=== PATIENT | female | born 1980 | race Caucasian/White ===

== ENCOUNTER 2018-09-04 18:19 | Outpatient (REF) | payer OTHER, SELFPAY ==
[2018-09-04 19:05] LABS: ALT 26 U/L (12-78); AST 19 U/L (15-37); Alkaline Phosphatase 77 U/L (46-116); Bilirubin, Direct 0.07 mg/dL (0.00-0.20); Bilirubin, Total 0.3 mg/dL (0.2-1.0); CREATININE 0.81 mg/dL (0.55-1.02); Uric Acid 3.3 mg/dL (2.6-6.0)
== END 2018-09-04 18:39 ==
LOC: NCHCN 18:19
PROVIDERS: PCP Nurse Practitioner; Visit Provider Nurse Practitioner Family
DX: R11.0 Nausea (principal); B36.0 Pityriasis versicolor; M10.9 Gout, unspecified
CPT/HCPCS: 80076; 82565; 84550

== ENCOUNTER 2019-04-16 13:23 | Outpatient (REF) | payer OTHER, SELFPAY ==
[2019-04-16 18:59] LABS: HCT 43.7 % (36.0-46.0); HGB 14.1 g/dL (12.0-15.5); Mean Corp. HGB Concentration 32.3 g/dL (32.0-36.0); Mean Corpuscular Hemoglobin 30.8 pg (27.0-33.0); Mean Corpuscular Volume 95.4 fL (80-95); Mean Platelet Volume 10.7 fL (8.0-11.0); Platelet Count 258 x1000/uL (130-400); RBC 4.58 m/cumm (4.00-5.20); White Blood Cell Count 6.14 k/cumm (4.4-10.8)
[2019-04-16 19:15] LABS: TSH (W/Ref FT4) 3.12 uIU/mL (0.358-3.74)
== END 2019-04-16 13:43 ==
LOC: NCHCN 13:23
PROVIDERS: PCP Nurse Practitioner; Visit Provider Family Medicine
DX: R11.2 Nausea with vomiting, unspecified (principal); R10.13 Epigastric pain
CPT/HCPCS: 85027; 84443

== ENCOUNTER 2019-04-19 09:39 | Outpatient (REF) | payer OTHER, SELFPAY ==
[2019-04-20 14:38] LABS: Helicobacter pylori Ag, Feces Negative (NEGAT)
== END 2019-04-19 09:59 ==
LOC: NCHCN 09:39
PROVIDERS: PCP Nurse Practitioner; Visit Provider Family Medicine
DX: K29.00 Acute gastritis without bleeding (principal)
CPT/HCPCS: 87338

== ENCOUNTER 2019-06-11 16:33 | Outpatient (REF) | payer OTHER, SELFPAY ==
[2019-06-11 19:50] LABS: ALT 30 U/L (12-78); AST 15 U/L (15-37); Albumin 3.8 g/dL (3.4-5.0); Alkaline Phosphatase 66 U/L (46-116); Bilirubin, Direct 0.05 mg/dL (0.00-0.20); Bilirubin, Total 0.2 mg/dL (0.2-1.0); Total Protein 6.9 g/dL (6.4-8.2)
[2019-06-14 12:42] LABS: IgA 145 mg/dL (85-499); Interpretation SEE COMMENTS; Tissue Transglutaminase IgA <1.2 U/mL (<4.0)
== END 2019-06-11 16:53 ==
LOC: NCHCN 16:33
PROVIDERS: PCP Nurse Practitioner; Visit Provider Family Medicine
DX: R10.13 Epigastric pain (principal); R11.2 Nausea with vomiting, unspecified
CPT/HCPCS: 80076; 82784; 83516

== ENCOUNTER 2019-07-19 10:59 | Day surgery (SDC) | payer OTHER, SELFPAY ==
--- NOTE | 2019-07-19 07:01 | W.PM.ENDDOP ---
Date of service: 07/19/19 Time of Service: 13:04 Endoscopy Report DATE OF PROCEDURE: 07/19/19 PRE-OP DIAGNOSIS: Abdominal pain POST-OP DIAGNOSIS: other (mild gastritis and mild esophagitis) PROCEDURE: 1. EGD with bx SURGEON: Chaya Fontenot ANESTHESIA: other (General/ ASA 2/Luis Ko CRNA) ESTIMATED BLOOD LOSS: 3 PATHOLOGY: other (Duodenal bx, gastric bx, GE junction bx) COMPLICATIONS: None DISPOSITION: same day INDICATIONS: Mrs. Cuadra is a pleasant 39-year-old female who was seen in the office for some abdominal pain. They have tried multiple different PPIs without any improvement in her symptoms. She also has high anxiety. Other symptoms include dizziness. EGD was recommended. Risks, benefits and complications have been reviewed. Complications include but are not limited to bleeding, pain, perforation, sore throat, aspiration, and adverse reaction to the medications. Questions were entertained and answered to their satisfaction and they wished to proceed. No guarantees were given or implied. PROCEDURE START TIME: 13:04 PROCEDURE END TIME: 13:15 FINDINGS: Normal Duodenum- bx done to rule out Celiac Mild gastritis Mild esophagitis Benign gastric polyps PROCEDURE DESCRIPTION: After informed consent was obtained the patient was take to the procedure room and placed in a supine position. Monitors were applied and a time out was done. The patients name, date of , procedure type, allergies to medications and metal in their body was reviewed. A bite block was placed and the patient was sedated. Once sedated and comfortable the gastroscope was advanced through the oropharynx which was grossly normal into the esophagus. The proximal and mid-esophagus were normal. In the distal esophagus there was mild inflammation noted. The scope was advanced into the stomach and through the pylorus into the 3rd portion of the duodenum. The duodenum was noted to be normal. Biopsies were done of the duodenum to rule out Celiac. The scope was retracted back into the stomach and biopsies were done to rule out H. pylori. There were no ulcers. The scope was retro-flexed. The cardia and fundus were noted to be normal. There no hiatal hernia noted. There a couple of benign fundic polyps noted in the body of the stomach. One polyp removed for pathology. The scope was retracted back into the esophagus and biopsies were done of the GE junction to rule out Figueroa's. The Z line was regular. The GE junction was at 40 cm. The scope was removed and the patient was woken up and taken back to [facility] in stable condition. Follow up: 2-3 weeks in the office
--- NOTE | 2019-07-19 07:03 | PDOC.DSDIS_ITS ---
Discharge Plan Disposition Patient Disposition: HOME Condition: Good Discharge Details Reason For Visit: EPIGASTRIC PAIN,DIARRHEA Attending Provider: Chaya Fontenot Primary Care Provider: Makayla Lees Home Meds and New Rx's Prescriptions: Continued acetaminophen [Tylenol 8 Hour] 650 mg tablet extended release 1,300 mg PO DAILY PRNRF: 0 omeprazole 40 mg capsule,delayed release(DR/EC) 40 mg PO BID RF: 0 Alyacen 06/06/ (28) 0.5/0.75/1 mg- 35 mcg tablet 1 tab PO DAILY RF: 0 ondansetron 4 MG tablet,disintegrating 4 mg PO Q6H PRN PRNQty: 6 RF: 0 Discontinued lorazepam [Ativan] 1 mg tablet 1 mg PO ONCE PRN (Reason: anxiety) Qty: 1 RF: 0 No Action lorazepam 1 mg Tablet 1 mg PO ONCE RF: 0 Discharge Instructions Instructions: Upper Endoscopy (GEN) Additional Instructions: Findings: Mild inflammation of the stomach Multiple biopsies were done Follow up: 2-3 weeks Continue with current medications until I see you in the office Please call if you develop: fevers >101.5 Nausea or Vomiting Abdominal pain that is not transient DAY SURGERY UNIT POST COLONOSCOPY INSTRUCTIONS 1. Because there will be medication in your system for the next 24 hours, you may feel a little sleepy. Your coordination will be affected. Therefore: a. Do not drive or operate dangerous equipment for 24 hours. b. Do not drink alcohol beverages for 24 hours (not even beer). c. Plan to go home and rest for the day. 2. Generally there are no restrictions on your activity after a day or so has gone by, but you may feel a bit fatigued for a few days. 3 After you arrive home you may have a light meal and return to a normal diet as you can tolerate it without feeling sick to your stomach. 4. After surgery, you may feel pain or discomfort. This should be only transient, but if it persists please contact your doctor. 5. If there are any questions regarding the findings of your procedure, please feel free to contact your doctor. 6. If you are unable to contact your doctor with a problem, contact the hospital at [phone]. 7. Continue all your regular medications unless directed otherwise. I understand the above instructions and have no questions. Signature of Patient or Responsible Adult Escort Date/Time Name of Responsible Adult Escort Signature of Nurse Date/Time Referrals: Chaya Fontenot MD [ [facility] STAFF PHYSICIAN] - 08/06/19 8:00 am Activity:: Activity as Tolerated Diet:: As Tolerated Discharge Orders Discharge Orders: Discharge Order (Routine); Ordered 07/19/19 Ordered By: Chaya Fontenot DS: Diagnosis Discharge Diagnosis (1) Epigastric pain: Status: Acute (2) H/O esophagogastroduodenoscopy: Status: Chronic
[2019-07-19 11:28] VITALS: BP 138/77; PULSE 74; RESP 16; TEMP 36.6; O2SAT 100
[2019-07-19] MEDS: Lactated Ringers 1,000 ML 80 ML IV (11:32)
--- NOTE | 2019-07-19 13:09 | BOWEL_PTH ---
PATIENT: Elham Cuadra LOC: [facility] U#:[id number] AGE/SX: 39/F ROOM: RE07/19/[address]: Chaya Fontenot MD : 1980 BED: DIS: 07/19/2019 SPEC #: [id number] RECD: 07/19/19 13:57 STATUS: MIGUEL A REMike #: [id number] MEGAN: 07/19/19 13:[address]: Chaya Fontenot DEPT: Surgical Specimen RECD BY: Ariana De La Rosa ENTERED: 07/19/19 13:58 SP TYPE: Bowel OTHR DR: Makayla Lees Tissues: 1 - BIOPSY BOWEL 2 - STOMACH BIOPSY 3 - STOMACH BIOPSY 4 - STOMACH BIOPSY Procedures: GROSS AND MICRO LEVEL 4 Comments: [id number]
[2019-07-19 13:59] VITALS: BP 117/78; PULSE 76; RESP 16; TEMP 36.6; O2SAT 100
== END 2019-07-19 14:15 | disposition home or self-care (01) ==
PROVIDERS: PCP Family Medicine; Visit Provider Surgery
PROC: 0DJ68ZZ Inspection of Stomach, Via Natural or Artificial Opening Endoscopic (ICD-10-PCS; CPT 43235; principal; 2019-07-19 12:45)
DX: R10.13 Epigastric pain (principal); K31.89 Other diseases of stomach and duodenum; K21.0 Gastro-esophageal reflux disease with esophagitis; K31.7 Polyp of stomach and duodenum; F41.9 Anxiety disorder, unspecified
CPT/HCPCS: 43239; 88305

== ENCOUNTER 2019-10-20 16:16 | Outpatient (REF) | payer OTHER, SELFPAY ==
--- NOTE | 2019-10-20 15:15 | PAPFT_PTH ---
PATIENT: Elham Cuadra LOC: [facility] U#:[id number] AGE/SX: 39/F ROOM: RE10/20/[address]: Makayla Lees : 1980 BED: DIS: 10/20/2019 SPEC #: [id number] RECD: 10/21/19 13:09 STATUS: MIGUEL A REMike #: [id number] MEGAN: 10/20/19 15:[address]: Makayla Lees DEPT: [facility] Cytology RECD BY: Essence Silverman Tissues: 1 - CX/ENDOCX FOR PAP SMEARS Procedures: PAP THIN PREP/UVM Screening HPV DNA PROBE Comments: [id number]
== END 2019-10-20 16:36 ==
LOC: NCHCN 16:16
PROVIDERS: PCP Family Medicine; Visit Provider Family Medicine
DX: Z00.00 Encounter for general adult medical examination without abnormal findings (principal); Z12.4 Encounter for screening for malignant neoplasm of cervix; Z11.51 Encounter for screening for human papillomavirus (HPV)
CPT/HCPCS: 88142; 87624

== ENCOUNTER 2020-07-17 18:47 | Outpatient (REF) | payer OTHER, SELFPAY ==
[2020-07-17 19:17] LABS: Bilirubin Negative (Negative); Blood Negative (Negative); Clarity Clear (Clear); Glucose Negative (Negative); Ketones Negative (Negative); Leukocyte Esterase Negative (Negative); Nitrite Negative (Negative); Specific Gravity 1.015 (1.005-1.025); Urobilinogen 0.2 EU/dL (Up TO 0.2); pH 7.5 (5-8)
[2020-07-17 19:21] LABS: HCG Qual (Urine) Negative
== END 2020-07-17 19:07 ==
LOC: NCHCN 18:47
PROVIDERS: PCP Family Medicine; Visit Provider Family Medicine
DX: R10.30 Lower abdominal pain, unspecified (principal)
CPT/HCPCS: 87491; 87591; 81003; 81025; 87480; 87510; 87660

== ENCOUNTER 2020-07-21 04:25 | Outpatient (CLI) | payer OTHER, SELFPAY ==
--- NOTE | 2020-07-21 | DI.US_ITS ---
EXAM: US PELVIS TRANSVAGINAL CLINICAL HISTORY: LOW ABD PAIN,R10.30 TECHNIQUE: Transabdominal and transvaginal imaging was performed using standard protocol. COMPARISON: US PELVIS TRANSVAG from 02/04/2016 FINDINGS: KIDNEYS: Kidneys are symmetric in size. No evidence of renal calculi. No evidence of hydronephrosis. No renal mass or cyst identified. UTERUS: 8.2 x 4.5 x 5.8 cm. Anteverted. Endometrium: Myometrium: Unremarkable. Cervix: Unremarkable. OVARIES: Right: Cyst or mass: 2.7 centimeter simple cyst versus dominant follicle. Left: Cyst or mass: None. DOPPLER: Color: Symmetric and uniform flow to both ovaries. No hyperemia. Duplex: Normal ovarian arterial waveforms visualized. CUL-DE-SAC: Free fluid: None. IMPRESSION: 1. Normal-appearing uterus with endometrial stripe within normal limits. 2. Unremarkable bilateral ovaries. DATA REPOSITORY:
== END 2020-07-21 04:45 ==
PROVIDERS: PCP Family Medicine; Visit Provider Family Medicine
DX: R10.30 Lower abdominal pain, unspecified (principal)
CPT/HCPCS: 76830; 76856

== ENCOUNTER 2022-09-24 16:54 | Outpatient (REF) | payer OTHER, SELFPAY ==
[2022-09-24 17:02] LABS: Bilirubin Negative (Negative); Blood Negative (Negative); Clarity Clear (Clear); Glucose Negative (Negative); Ketones Negative (Negative); Leukocyte Esterase Negative (Negative); Nitrite Negative (Negative); Specific Gravity 1.015 (1.005-1.025); Urobilinogen 0.2 EU/dL (Up TO 0.2)
== END 2022-09-24 16:55 | disposition home or self-care (01) ==
LOC: NCHCN 16:54
PROVIDERS: PCP Family Medicine; Visit Provider Nurse Practitioner Family
DX: R30.0 Dysuria (principal); R35.0 Frequency of micturition
CPT/HCPCS: 81003

== ENCOUNTER 2022-10-30 15:12 | Outpatient (REF) | payer OTHER, SELFPAY ==
[2022-10-30 16:25] LABS: ALT 25 U/L (14-59); AST 12 U/L (15-37); Albumin 4.4 g/dL (3.4-5.0); Alkaline Phosphatase 80 U/L (46-116); Bilirubin, Total 0.4 mg/dL (0.2-1.0); Calculated LDL 137 mg/dL (<100); Cholesterol 237 mg/dL (<200); HDL Cholesterol 85 mg/dL (40-60); Total Protein 7.6 g/dL (6.4-8.2); Triglyceride 75 mg/dL (<150)
[2022-10-30 16:39] LABS: Bilirubin, Direct 0.1 mg/dL (0.0-0.2)
[2022-10-31 10:39] LABS: HIV-1/2 Ag & Ab Screen Negative (Negative)
[2022-10-31 16:22] LABS: Hepatitis C Ab w Rflx HCV PCR Negative (Negative)
== END 2022-10-30 15:13 | disposition home or self-care (01) ==
LOC: NCHCN 15:12
PROVIDERS: PCP Family Medicine; Visit Provider Family Medicine
DX: Z00.00 Encounter for general adult medical examination without abnormal findings (principal); Z11.4 Encounter for screening for human immunodeficiency virus [HIV]; Z11.59 Encounter for screening for other viral diseases; Z79.899 Other long term (current) drug therapy; Z51.81 Encounter for therapeutic drug level monitoring; Z13.220 Encounter for screening for lipoid disorders
CPT/HCPCS: 80061; 80076; 86803; 87389

== ENCOUNTER 2022-11-08 06:58 | Day surgery (SDC) | payer OTHER, SELFPAY ==
--- NOTE | 2022-11-07 20:38 | W.PM.DSUDISC ---
Date of service: 11/08/22 Time of Service: 08:22 Discharge Plan Disposition Patient Disposition: Home Discharge Details Reason For Visit: EGD Attending Provider: Win Still Primary Care Provider: Makayla Lees Home Meds and New Rx's Prescriptions: Continued acetaminophen [Tylenol 8 Hour] 650 mg tablet extended release 1,300 mg PO DAILY PRN omeprazole 40 mg capsule,delayed release(DR/EC) 40 mg PO DAILY riboflavin (vitamin B2) 400 mg tablet 400 mg PO DAILY terbinafine HCl 250 mg tablet 250 mg PO DAILY apple cider vinegar 600 mg capsule 600 mg PO DAILY ondansetron 4 MG tablet,disintegrating 4 mg PO Q6H PRN PRNQty: 6 0RF Label Comments: no longer taking Discontinued lorazepam 1 mg tablet 1 mg PO ONCE PRN (Reason: anxiety) Qty: 1 0RF Rx Instructions: take the morning of your procedure with a sip ofwater Discharge Instructions Instructions: Figueroa Esophagus (DC) Additional Instructions: 1. If tolerated, consume a soft, low fiber diet for 1-2 days. 2[address] Do not drive, drink alcohol, operate machinery, make critical decisions, or do activities that require coordination or balance for 24 hours. 3. You may experience a sore throat for 24 to 48 hours. You may use throat lozenges or gargle with warm salt water to relieve the discomfort. 4. Because air was put into your stomach during the procedure, you may experience some belching. 5. Go directly to the emergency room if you notice any of the following: Develop chills (warm to touch), or if you have a thermometer and your temperature is above 101 Difficulty breathing or difficultly swallowing Persistent vomiting Severe abdominal pain, other than gas cramps Severe chest pain Black, tarry stools Any bleeding ? exceeding one tablespoon 6. Call your physician if the site where your intravenous was started becomes red, swollen, painful, and warm to touch. 7. Your physician has reviewed your pre-procedure medications. Please continue to take those medications as previously ordered. You will be given specific information/education regarding any changes to your medications before leaving. Activity:: Activity as Tolerated Diet:: As Tolerated Discharge Orders Discharge Orders: Discharge Order (Routine); Ordered 11/07/22 Ordered By: Win Still DS: Diagnosis Discharge Diagnosis (1) Figueroa's esophagus with esophagitis: Status: Acute Asessment and Plan: I will contact you with results of the biopsies.
--- NOTE | 2022-11-07 20:40 | ENDO_ITS ---
Date of service: 11/08/22 Time of Service: 08:24 Endoscopy Report DATE OF PROCEDURE: 11/08/22 PRE-OP DIAGNOSIS: Barretts esophagus POST-OP DIAGNOSIS: same PROCEDURE: EGD with biopsies SURGEON: Win Still ANESTHESIA TYPE: General:No Airway ESTIMATED BLOOD LOSS: 10 PATHOLOGY: other (Four-quadrant biopsy of Figueroa's esophagus) COMPLICATIONS: None DISPOSITION: same day INDICATIONS: Elham is a 42-year-old woman who underwent EGD in 2019. Biopsies of the GE junction demonstrated metaplasia consistent with Figueroa's esophagus. She is here for surveillance FINDINGS: Short segment Figueroa's esophagus PROCEDURE DESCRIPTION: After the initiation of monitored anesthetic care, and with the assistance of a bite block, I advanced a standard gastroscope through the mouth past the hypopharynx and into the esophagus.? Under the direct vision of the scope, I advanced down the esophagus into the stomach.? Once I entered the stomach, I performed a brief inspection, followed by retroflexion towards the gastric cardia.? This appeared normal.? After that, I gently advanced the scope around the incisura angularis and examined the pylorus.? This also appeared normal.? Next, I advanced the scope through the pylorus into the duodenum.? The mucosa was pink and healthy appearing.? There were no abnormalities.? I was able to vi sualize bile draining into the duodenum through the ampulla Vater. ?Next, I began retracting the endoscope.? Again, I returned to the stomach which was carefully examined once again.? I then gently desufflated some of the stomach, and withdrew the endoscope into the distal esophagus. I measured the GE junction at 47 cm, and the Z-line at 45 cm, although there was a little bit of movement with some hiccuping. The Z-line was regular appearing. I did perform four-quadrant biopsies using cold forceps. There was minimal bleeding. ?Finally, I withdrew the scope along the length of the esophagus taking great care to examine the entirety of the mucosa.? I did not appreciate any abnormalities.
[2022-11-08 07:27] VITALS: BP 119/76; PULSE 79; RESP 18; TEMP 36.8; O2SAT 100
--- NOTE | 2022-11-08 07:49 | ANES.PREOP_ITS ---
General Info Date of Service Date Performed: 11/08/22 Height: 5 ft 7 in Weight: 65.3 kg Body Mass Index (BMI): 22.5 Surgical Procedure: Operation Date: 11/08/22 08:20 Proposed Procedure Side Surgeon p Gastroscopy Win Still MD Meds Allergies and Home Medications Allergies Allergy/AdvReac Type Severity Reaction Status Date / Time No Known Allergies Allergy Verified 11/08/22 07:25 Home Medication Medication Instructions Recorded ondansetron 4 mg disintegrating 4 mg PO Q6H PRN PRN ##6 02/19/13 tablet acetaminophen 650 mg 1,300 mg PO DAILY PRN 07/09/19 tablet,extended release (Tylenol 8 Hour) omeprazole 40 mg capsule,delayed 40 mg PO DAILY 08/06/19 release apple cider vinegar 600 mg capsule 600 mg PO DAILY 10/10/22 riboflavin (vitamin B2) 400 mg 400 mg PO DAILY 10/10/22 tablet terbinafine HCl 250 mg tablet 250 mg PO DAILY 10/10/22 Current Visit Medications: Current Medications Generic Name Dose Route Start Last Admin Trade Name Freq PRN Reason Stop Dose Admin Hyoscyamine Sulfate 0.125 mg 11/07/22 20:41 Hyoscyamine 0.125 Mg Sl/Oral/Chew SL DIRECTED PRN Ringer's Solution 1,000 mls @ 80 mls/hr 11/08/22 06:00 IV 11/08/22 23:59 [facility] IV Miscellaneous Supplies 1 each 11/08/22 06:00 Iv Access IV 11/08/22 23:59 DIRECTED [facility] Ondansetron HCl 4 mg 11/07/22 20:41 Ondansetron 4 Mg/2 Ml Vial IVP Q4H PRN PRN Nausea / Vomiting Sodium Chloride 0 ml 11/08/22 06:00 Normal Saline Flush 10 Ml Syr IV 11/08/22 23:59 PRN PRN Sodium Chloride 0 ml 11/08/22 06:00 Normal Saline 10 Ml Vial IJ 11/08/22 23:59 DIRECTED PRN Sterile Water 0 ml 11/08/22 06:00 Water,Injection,Sterile 10 Ml Vial IJ 11/08/22 23:59 DIRECTED PRN PFSH Active Problems Active Problems: Problem Status Onset Code Dysuria R30.0 GERD (gastroesophageal reflux disease) K21.9 Figueroa's esophagus with esophagitis K22.70, K20.90 Migraine G43.909 Nausea & vomiting R11.2 Anxiety F41.9 Diarrhea R19.7 Acute gastritis K29.00 Dyspepsia R10.13 Sinusitis J32.9 Epigastric pain R10.13 Medical History Medical History ASCUS (atypical squamous cells of undetermined significance) on gynecologic Papanicolaou smear complicating , antepartum Onychomycosis Pityriasis versicolor Surgical History Surgical History H/O esophagogastroduodenoscopy (~07/19/19) H/O tooth extraction Tobacco Smoking/Tobacco Use Status: Never Alcohol Alcohol Intake: never Substance Use Substance use: Never Substance use type: does not use Vital Signs and Lab Results Vital Signs Most Recent Vital Signs in EMR: Most Recent Vital Signs Temp Pulse Resp BP Pulse Ox 36.8 C 79 18 119/76 100 11/08/22 07:27 11/08/22 07:27 11/08/22 07:27 11/08/22 07:27 11/08/22 07:27 Point of Care Results Point of Care Results: POC- Test(urine) Negative 11/08/22 07:24 Lab Results Blood Type / Crossmatch: No Data to Display Complete Blood Count: No Data to Display Complete Metabolic Panel: Albumin 4.4 g/dL (3.4-5.0) 10/30/22 08:45 Liver Function Panel: Alanine Aminotransferase (ALT/SGPT) 25 U/L (14-59) 10/30/22 08: 45 Aspartate Amino Transf (AST/SGOT) 12 U/L (15-37) L 10/30/22 08: 45 Coagulation Panel: No Data to Display Cardiac Panel: No Data to Display Arterial Blood Gas: No Data to Display Venous Blood Gas: No Data to Display Pancreas Panel: No Data to Display Thyroid Panel: No Data to Display Infectious Disease: HIV (1&2) Ag and Ab, 4th Generation Negative (Negative) 08:45 Hepatitis C Antibody Negative (Negative) 10/30/22 08:45 Blood Cultures: No Data to Display Toxicology Panel: No Data to Display Panel: No Data to Display Anesthesia Assessment and Plan Anesthesia History Personal History: No History of Anesthesia Complications Family History: No Family History of Anesthesia Complications Exercise Tolerance Exercise Tolerance: Metabolic Equivalents>4 Pertinent Negatives Pertinent Negatives: No Major Cardiovascular Symptoms or Complaints and No Major Pulmonary Symptoms or Complaints Cardiac & Pulmonary Exam Cardiac Exam: Normal S1/S2 Heart Sounds Pulmonary Exam: Clear Bilateral Breath Sounds Implantable Cardiac Device Does patient have a Pacemaker or an ICD?: No Airway Exam Known Difficult Airway: No Mallampati Class: 1 Mouth Opening: Normal (> 3cm) Thyromental Distance: Greater than 3 cm Neck Range of Motion: Full ROM Neck Circumference: Normal Teeth Condition: Normal Dentition ASA Classification ASA Score: ASA 2 Emergency Case?: No NPO Status NPO Status: NPO Clears >2 hours, Solids >8 hours Status Status: Negative HCG Anesthesia Plan Resuscitation Status: Full Code Anesthesia Technique: General Anesthesia Airway Planned: Natural Airway Monitors Used: Standard Monitors
[2022-11-08] MEDS: Lactated Ringers 1,000 ML 80 ML IV (07:50)
[2022-11-08 07:52] VITALS: BMI 22.5
--- NOTE | 2022-11-08 08:10 | ESO_PTH ---
PATIENT: Elham Cuadra LOC: [facility] U#:[id number] AGE/SX: 42/F ROOM: RE11/08/[address]: Win Still MD : 1980 BED: DIS: 11/08/2022 SPEC #: [id number] RECD: 11/08/22 11:32 STATUS: MIGUEL A RE #: [id number] MEGAN: 11/08/22 08:[address]: Win Still DEPT: Surgical Specimen RECD BY: Essence Silverman ENTERED: 11/08/22 11:33 SP TYPE: Valerio TIMOTEO DR: Makayla Lees Tissues: 1 - ESOPHAGUS BIOPSY Procedures: GROSS AND MICRO LEVEL 4 Comments: [id number]
[2022-11-08 08:28] VITALS: BP 113/82; PULSE 92; RESP 18; TEMP 36.3; O2SAT 97
[2022-11-08 08:58] VITALS: BP 119/75; PULSE 79; RESP 16; TEMP 36.3; O2SAT 100
--- NOTE | 2022-11-08 09:30 | W.ANESPOSTOP ---
Postoperative Evaluation Date, Time and Location Date Performed: 11/08/22 Time Performed: 08:32 Patient Location: Day Surgery Unit Vital Signs Most Recent Imported Vital Signs: Most Recent Vital Signs Temp Pulse Resp BP Pulse Ox 36.3 C L 79 16 119/75 100 11/08/22 08:58 11/08/22 08:58 11/08/22 08:58 11/08/22 08:58 11/08/22 08:58 Pain Score Most Recent Pain Score: Most Recent Pain Score Pain Level 0 11/08/22 08:58 Assessment Mental Status: Arousable with meaningful communication Airway and Respiratory Function: Patent airway with normal (patient baseline) respiratory exam Cardiovascular Function: Hemodynamically Stable Hydration Status: Adequately Hydrated Nausea & Vomiting: No Nausea or Vomiting Pain: Pt. Denies Any Pain Peripheral Nerve Block: Patient did not receive a nerve block
== END 2022-11-08 09:30 | disposition home or self-care (01) ==
PROVIDERS: PCP Family Medicine; Visit Provider Surgery
PROC: 0DJ68ZZ Inspection of Stomach, Via Natural or Artificial Opening Endoscopic (ICD-10-PCS; CPT 43235; principal; 2022-11-08 08:15)
DX: K22.70 Barrett's esophagus without dysplasia (principal)
CPT/HCPCS: 43239; 81025; 88305; J2250

== ENCOUNTER → 2023-10-09 00:32 | Outpatient (CLI) | payer OTHER, SELFPAY ==
--- NOTE | 2023-10-09 13:09 | DI.MAMMO_ITS ---
Exam(s) MAMMO SCREENING EXAM: MAMMO SCREENING CLINICAL HISTORY: SCREENING BREAST CANCER Z12.39. TECHNIQUE: Bilateral full field digital CC and MLO mammographic images were obtained with 3D tomosyn thesis and utilizing computer aided detection (CAD). COMPARISON: None. This is a baseline mammogram on this 43-year-old patient. FINDINGS: Fibroglandular tissue pattern is moderately dense, this somewhat decreasing the sensitivity of the ma mmogram for finding hidden underlying lesions. In the left breast MLO view there is asmall 2 mm nodular density located 3 cm in from the nipple. Elsewhere in the left breast there are punctate microcalcifications having benign appearance. No significant focal findings in the opposite-right breast. There is no significant architectural distortion nor skin thickening-retraction. IMPRESSION: 1. Dense bilateral fibroglandular tissue. No radiographic evidence of malignancy in the right breast . 2. Small 2 millimeter left breast nodule. Also punctate microcalcifications in left breast. Given t hese findings and the density of her breast tissue recommend ultrasound examination as this often imp lies presence of multiple cysts. BI-RADS Category 0 - Assessment Incomplete: Need additional imaging evaluation Breast Density - Category C - Heterogeneously dense Breast density Category C or D implies that the patient has dense breast tissue. Dense breast tissue can make it harder to find cancer on a mammogram. Dense breast tissue is also associated with an incr eased risk of breast cancer. This information about the result of the mammogram report was provided to the patient to raise their awareness. Use this report when you speak with the patient about their risks for breast cancer, which includes their family history. At that time, you may recommend additional screening tests (Ultrasoun d or MRI) as these tests may add significant information. A negative radiographic report should not delay biopsy if a dominant or clinically suspicious mass is present. Up to ten percent of cancers are not identified on mammography. A negative report may reinforce clinical impression. Adenosis and dense breasts may obscure an underlying neoplasm. False positive reports average 6 to 10%. Patient will receive a letter notifying them of these results.
== END ==
PROVIDERS: PCP Family Medicine; Visit Provider Family Medicine
DX: Z12.31 Encounter for screening mammogram for malignant neoplasm of breast (principal); R92.333 Mammographic heterogeneous density, bilateral breasts; R92.0 Mammographic microcalcification found on diagnostic imaging of breast; R92.8 Other abnormal and inconclusive findings on diagnostic imaging of breast
CPT/HCPCS: 77063; 77067

== ENCOUNTER → 2023-10-17 00:59 | Outpatient (CLI) | payer OTHER, SELFPAY ==
--- NOTE | 2023-10-17 | DI.MAMMO_ITS ---
Exam(s) US BREAST LT COMPLETE MG MAMMO SCREEN CALL BACK UNI EXAM: MG MAMMO SCREEN CALL BACK UNI-LEFT AND COMPLETE LEFT BREAST ULTRASOUND CLINICAL HISTORY: STABLE LT NODULE AND PUNCTATE MICROCALCIFICATIONS, ? CYSTS, R92.8. TECHNIQUE: Unilateral spot mammographic images obtained with 3D tomosynthesisand utilizing computer aided detection (CAD). . Complete LEFT breast Ultrasound was also performed, including all 4 quadrants, the retroareolar regio n, and the ipsilateral axilla. COMPARISON: Prior mammograms were reviewed. This additional imaging was performed due to findings described on the recent BASELINE screening mammogram of 10/09/2023. FINDINGS: DIAGNOSTIC MAMMOGRAM: Additional mammographic views performed todayrender this area less concerning.The small nodule descri bed on the baseline mammogram appears to dissipate on spot compression view. COMPLETE LEFT BREAST ULTRASOUND: Ultrasound performed today reveals a solitary finding which is a 7 x 3 mm benign microcyst at the 6 o 'clock position. This does not correspond to the finding described on the recent mammogram (which di ssipated on additional spot compression view performed today). Most importantly, there are no solid lesions seen in all 4 quadrants. Scanning of the ipsilateral axilla reveals no significant adenopathy. IMPRESSION: 1. No radiographic evidence of malignancy in the left breast. 2. Solitary benign small microcyst at 6 o'clock position seen on ultrasound. Appropriate follow-up is to keep this patient on a yearly mammogram schedule. Given the density of her fibroglandular tissue I recommend bilateral breast ultrasound at time for next yearly mammogram, with earlier imaging if a self detected breast change is noted.. The patient was informed of these findings and recommendations by myself prior to leaving the depart ent today. BI-RADS Category 2 - Benign Findings Breast Density - Category D - Extremely dense Breast density Category C or D implies that the patient has dense breast tissue. Dense breast tissue can make it harder to find cancer on a mammogram. Dense breast tissue is also associated with an incr eased risk of breast cancer. This information about the result of the mammogram report was provided to the patient to raise their awareness. Use this report when you speak with the patient about their risks for breast cancer, which includes their family history. At that time, you may recommend additional screening tests (Ultrasoun d or MRI) as these tests may add significant information. A negative radiographic report should not delay biopsy if a dominant or clinically suspicious mass is present. Up to ten percent of cancers are not identified on mammography. A negative report may reinforce clinical impression. Adenosis and dense breasts may obscure an underlying neoplasm. False positive reports average 6 to 10%. Patient will receive a letter notifying them of these results.
== END ==
PROVIDERS: PCP Family Medicine; Visit Provider Family Medicine
DX: Z12.31 Encounter for screening mammogram for malignant neoplasm of breast (principal); N60.02 Solitary cyst of left breast
CPT/HCPCS: 76642; 77063; 77067

== ENCOUNTER 2024-10-29 16:05 | Emergency (ER) | payer OTHER, SELFPAY ==
[2024-10-29 16:06] VITALS: BP 153/84; PULSE 72; RESP 16; TEMP 36.7; O2SAT 98
[2024-10-29 16:09] VITALS: BP 153/84; PULSE 72; RESP 16; TEMP 36.7; O2SAT 98
--- NOTE | 2024-10-29 16:46 | ED.GENADUL_ITS ---
Discharge Plan Disposition Patient Disposition: Home Condition: Stable Discharge Details Clinical Impression: Headache, Figueroa's esophagus with esophagitis, GERD (gastroesophageal reflux disease) Primary Care Provider: Makayla Lees ED Provider: Flory Greenwood Home Meds and New Rx's Prescriptions: New metoclopramide HCl [Reglan] 10 mg tablet 10 mg PO Q6H PRNQty: 7 0RF Rx Instructions: administer 30 minutes before meals No Action mecobalamin (vitamin B12) 1,000 mcg tablet,chewable 1,000 mcg PO DAILY acetaminophen [Tylenol 8 Hour] 650 mg tablet extended release 1,300 mg PO DAILY PRN omeprazole 40 mg capsule,delayed release(DR/EC) 40 mg PO DAILY ondansetron 4 MG tablet,disintegrating 4 mg PO Q6H PRN PRNQty: 6 0RF Discharge Instructions Instructions: Headache, Adult ED Additional Instructions: You were seen in the emergency department today for evaluation of headache. In our department you had a full physical examination performed, had a CT scan that did not show any abnormalities that might account for your symptoms (we did note a small area of extra bone growth that appears benign, and is unlikely to be causing your symptoms). You have a Lyme and tick panel that was sent off and will result within the next several days to a week, you should be contacted with any positive results, but should have your primary care provider follow-up on is test to ensure you are made aware of the results. I have sent you with a prescription for Reglan, a medication that is helpful for management of headaches and nausea. Please continue to use Tylenol and ibuprofen as the mainstays of headache management. Some people find that taking 25 mg of Benadryl with the Reglan is a very effective combination for management of headache symptoms. You should follow-up with your primary care provider in the next few days to discuss this visit and any symptoms that change, worsen, or persist, thank you for allowing us to be part of your care. HPI General Date/Time Provider Initiated Documentation: 10/29/24 16:21 . Limitations to Documentation: no limitations . Information obtained by: patient, family and old records reviewed . HPI Narrative: HPI: This is a 44-year-old female patient with a past medical history significant for abdominal migraines, GERD, and Figueroa's esophagus, who is presenting for evaluation of headache. She reports that she has had a headache for the last month, has had waxing and waning of symptoms but has not had any pain-free movements in that month. She has been using sqhz-vxz-yaobvij medications to try to manage her symptoms without significant improvement, states that for a while they seem to make it better but today her headache worsened. It is located around her entire head, is associated with photophobia and nausea. She states that today she also felt hot and cold as well as some lightheadedness. She has not had vertigo, loss of consciousness, numbness, weakness. She states that she is not experiencing any changes in vision, denies trauma or injury. The patient does not have a history of migraine headaches, was seen at an urgent care today who recommended that she seek care at our facility for CT scan. The patient is also interested in having a Lyme test done, states that she finds numerous ticks on her throughout the year, has not had any rashes or known engorged ticks recently. Exam: Gen: awake and alert, in no apparent distress. Appears well nourished. HEENT: PERRL, EOMs full and without nystagmus. No conjunctival injection. No fullness or tortuosity of the vessels with palpation over the temporal regions, no tenderness to palpation over the TMJ, no clicking with opening of the jaw. External ears and nose normal, mucous membranes moist. Neck: Supple, full range of motion, no observable masses Lungs: No increased work of breathing CV: Heart with regular rate and rhythm, strong radial pulses. Abdomen: Soft, nondistended MSK: Full ROM without limitation, no external traumatic findings. Skin: No rashes or lesions to visualized skin. Normal color, warm, and dry. Neuro: Cranial nerves II-XII intact and symmetrical bilaterally. 5/5 strength in all muscle groups x4 extremities. No sensory deficits. Ambulates with steady gait. No pronator drift, accurate targeting with ofkwwy-ro-zszt bilaterally Psych: Appropriate for situation. MDM: This is a 44-year-old female patient presenting for evaluation of headache. My differential includes but is not limited to migraine, tension headache, no parasympathetic symptoms to increase my concern for cluster headache. Certainly considered subarachnoid hemorrhage, intracranial mass, dural venous sinus thrombosis, though the patient is reassuringly without any neurodeficits and her headache was not thunderclap quality. Additionally, the duration of symptoms makes life-threatening intracranial abnormalities much less likely. The patient has no fevers or nuchal rigidity to suggest meningitis or encephalitis. She is without ocular symptoms to increase my concern for optic neuritis, temporal arteritis, glaucoma. Considered TMJ dysfunction, though the patient does not have exacerbation of her headache with chewing. The duration of symptoms are less consistent with trigeminal neuralgia. We will provide the patient with a migraine cocktail, obtain a Lyme test (though I see no indication at this time to empirically treat for Lyme given the lack of engorged ticks and other symptoms), and after shared decision-making conversation with the patient we will proceed with CT scan of the brain without contrast to evaluate for abnormalities which might account for her symptoms. ED Course: Independently interpreted the patient's CT scan, which shows no intracranial hemorrhage or mass effect. She does have a small benign appearing bone growth on the outer aspect of her right skull, which was shared with her and does not require any additional workup or intervention at this time. The patient had a complete resolution of her symptoms with the above-noted interventions, will meet with her primary care provider to follow-up on the results of her Lyme testing. I provided her with a prescription for a short course of Reglan for ongoing headache management. At this time, the patient has had a full medical evaluation and is safe for discharge to home. They are hemodynamically stable, ambulatory, and tolerating PO. They are understanding of the follow-up plan and return precautions. They left our facility without incident. Flory Greenwood MD Related Data Home Medications ?Medication ?Instructions ?Recorded ?Confirmed ondansetron 4 mg disintegrating 4 mg PO Q6H PRN PRN ##6 02/19/13 10/29/24 tablet acetaminophen 650 mg 1,300 mg PO DAILY PRN 07/09/19 10/29/24 tablet,extended release (Tylenol 8 Hour) omeprazole 40 mg capsule,delayed 40 mg PO DAILY 08/06/19 10/29/24 release mecobalamin (vitamin B12) 1,000 1,000 mcg PO DAILY 10/29/24 10/29/24 mcg chewable tablet metoclopramide HCl 10 mg tablet 10 mg PO Q6H PRN #7 tabs 10/29/24 (Reglan) Previous Rx's ?Medication ?Instructions ?Recorded ondansetron 4 mg disintegrating 4 mg PO Q6H PRN PRN ##6 02/19/13 tablet metoclopramide HCl 10 mg tablet 10 mg PO Q6H PRN #7 tabs 10/29/24 (Reglan) Allergies Allergy/AdvReac Type Severity Reaction Status Date / Time No Known Allergies Allergy Verified 10/29/24 16:08 General Stated Complaint: Headache RAFAEL: 3 Course Vital Signs Vital signs: Vital Signs Temperature 36.7 C 10/29/24 16:06 Pulse 72 10/29/24 16:06 Respiratory Rate 16 10/29/24 16:06 Blood Pressure 153/84 H 10/29/24 16:06 Pulse Oximetry 98 10/29/24 16:06 Temperature 36.7 C 10/29/24 16:09 Temperature Source Oral 10/29/24 16:09 Pulse 72 10/29/24 16:09 Respiratory Rate 16 10/29/24 16:09 Respiratory Effort Normal, Non-Labored 10/29/24 16:09 Blood Pressure 153/84 H 10/29/24 16:09 Blood Pressure Position Sitting 10/29/24 16:09 Pulse Oximetry 98 10/29/24 16:09 Oxygen Delivery Method Room Air 10/29/24 16:09 Oxygen Flow Rate 0 10/29/24 16:09 Medical Decision Making Quality:SDOH Health Related Social Needs: No Data to Display PFSH All Active Problems (Updated 10/29/24 @ 17:40 by Flory Greenwood MD) Headache (Acute) Dysuria (Acute) GERD (gastroesophageal reflux disease) (Chronic) Figueroa's esophagus with esophagitis (Acute) Migraine (Chronic) Nausea & vomiting (Acute) Anxiety (Chronic) Diarrhea (Acute) Acute gastritis (Acute) Dyspepsia (Acute) Sinusitis (Acute) Epigastric pain (Acute) Medical History (Updated 10/29/24 @ 17:40 by Flory Greenwood MD) Onychomycosis ASCUS (atypical squamous cells of undetermined significance) on gynecologic Papanicolaou smear complicating , antepartum Pityriasis versicolor Surgical History (Updated 11/22/22 @ 09:03 by Karoline Ovalle RN) H/O esophagogastroduodenoscopy (~11/08/22) 07/19/19 11/08/[address].Smith, repeat 3-5 yrs H/O tooth extraction Family History Mother Leukemia Paternal Grandmother Diabetes Breast cancer Brother Hypertension Social History Smoking/Tobacco Use Status: Never Smoking risk assessment performed?: Yes Alcohol Intake: never Drug use: Never Substance use type: does not use Household members: spouse Current gender identity: female Do you feel safe at home: Yes Do you feel safe in your relationship?: Yes Additional Social history: unable assess privately
[2024-10-29 17:00] VITALS: BP 119/69; PULSE 67; RESP 16; TEMP 36.8; O2SAT 98
[2024-10-29] MEDS: Metoclopramide 10 MG/2 ML VIAL IVP (17:07)
[2024-10-29] MEDS: Ketorolac 15 MG/ML VIAL IVP (17:07)
[2024-10-29] MEDS: diphenhydrAMINE 50 MG/ML VIAL 25 MG IVP (17:07)
--- NOTE | 2024-10-29 17:25 | DI.CT_ITS ---
Exam(s) CT HEAD WO EXAM: CT HEAD WO CLINICAL HISTORY: MONTENEGRO x1 month. TECHNIQUE: Imaging Protocol: Axial computed tomography images with coronal and sagittal reformatted images were created and reviewed COMPARISON: No exams were available for comparison FINDINGS: There are no skull fractures. There is benign-appearing sclerotic thickening of the right lateral sku ll measuring approximately 3.4 cm craniocaudal by 1.8 cm wide by 0.6 cm wide. This is over the right temporal region. There is no evidence of intracranial hemorrhage, mass effect, or shift of midline structures. There are no extra-axial fluid collections. The ventricles are not enlarged or shifted and there is no blo od within the ventricular system nor within the basal cisterns. IMPRESSION: No acute intracranial findings on this noninfused CT scan of the brain. Focal right sided benign-appearing sclerotic dense skull lesion measuring 3.4 x 1.8 x 0.6 cm. Report called by myself to ER physician 10/29/2024 at 5:32 p.m. RADIATION DOSE DELIVERED: 917.5mGy.cm Total DLP DATA REPOSITORY: All CT scans at this facility are submitted to the National Radiology Data Registry (NRDR) Dose Index Registry (DIR) with the [employer] (ACR). RADIATION OPTIMIZATION: All CT scans at this facility use at least one of these dose optimization te chniques: automated exposure control; mA and/or kV adjustment per patient size (includes targeted exa ms where dose is matched to clinical indication); or iterative reconstruction.
[2024-10-29 17:58] VITALS: BP 119/70; PULSE 68; RESP 20; O2SAT 98
--- OUTSIDE RECORDS SUMMARY | 2024-10-29 18:00 | XMS_ITS | Clinical Summary ---
[facility] Organization [facility] [place] [address] Care Team Providers Care Test Hole Driller Name Role Phone Makayla Lees MD Primary Care Provider [phone] Social History Tobacco Use Types Packs/Day Years Used Date Smoking Tobacco: Never Assessed Sex and Gender Information Value Date Recorded Sex Assigned at Not on file Gender Identity Not on file Sexual Orientation Not on file Plan of Treatment Health Maintenance Due Date Last Done Comments HIV screen 2000 Hepatitis C Screening 2000 Hepatitis B vaccine (0-59 yrs) (1) 2001 Tetanus/Diphtheria/Pertussis Vaccines (1 - Tdap) 04/11 HPV test 2012 PAP Smear 2012 Breast Cancer Share Decision Needed 2022 Breast Cancer screening 2022 Covid-19 Vaccine ( - season) 2024 Influenza (Flu) vaccine (1 o f 1 - Influenza standard series) 08/01/2024 Care Teams Test Hole Driller Relationship Specialty Start Date End Date Makayla Lees MD [facility] [address] [place], [place] [id number] PCP - General Family Medicine 02/20/24
--- OUTSIDE RECORDS SUMMARY | 2024-10-29 18:00 | XMS_ITS | Encounter Summary ---
Author Organization [facility] Address [address] [place] [address] Care Team Providers Care Cad Cam Programmer Name Role Phone Unavailable Primary Care Provider Unavailabl e Encounter Details Date Type Department Care Team (Late st Contact Info) Description 10/01/2010 Results Only [facility] Laboratory Services - [facility] ([facility] [place] [address] [place] [address] Latanya Weiss [place], [place] [id number] Social History Tobacco Use Types Packs/Day Years Used Date Smoking Tobacco: Never Assessed Comments Unknown Sex and Gender Information Value Date Recorded Sex Assigned at Not on file Legal Sex Female 18:38 EST Gender Identity Not on file Sexual Orientation Not on file documented as of this encounter Plan of Treatment Not on file documented as of this encounter Procedures Procedure Name Priority Date/Time Associated Diagnosis Comments CYTOPATHOLOGY Routine 10/01/2010 0:00 EDT documented in this encounter Results * CYTOPATHOLOGY (10/01/2010 0:00 EDT) Pathology Report: CYTOPATHOLOGY REPORT ? Reports generated via electronic interface contain original data; ? however they are lacking the format of the original report. ? Caution should be taken when reading/interpreti ng unformatted reports. ? Name: ? AMADON, ELHAM ? Accession #: ? [id number] ? : ? 1980 (Age: 30) ??F ?Collect Date: ? 10/01/2010 ? Location: ? [facility] ? Receive Date: ? 10/02/2010 ? Provider: ?LATANYA WEISS CNM ? Copy to: ? Specimen/Source: ?Pap Test, Cervix/Endocervix, ThinPrep Imaging System ? with manual evaluation ? Last Menstrual Period: ? 09/03/10 ? Menstrual/Pregnanc y Status: ? Previous Gynecologic Pathology: ? ASC-US: HPV neg. 10/06 ? Other: ? Additional clinical information: 05/08 pap neg. HPV neg. ? SPECIMEN ADEQUACY ? Satisfactory for Evaluation ? - transformation zone component present ? GENERAL CATEGORIZATION ? Negative for Intraepithelial Lesion or Malignancy ? Document reviewed and electronically signed by: ? Madhu Stumler, CT(ASCP) ? Report Date: ??10/03/2010 15:58 ? End of Report ? [facility] 10/01/2010 10/02/2010 us Latanya Weiss CNTim PATHOLOGY ORDERABLES Final Res ult [facility] [address] [place] [address] documented in this encounter Visit Diagnoses Not on filedocumented in this encounter
--- OUTSIDE RECORDS SUMMARY | 2024-10-29 18:00 | XMS_ITS | Encounter Summary ---
Author Organization [facility] Address [address] [place] [address] Care Team Providers Care Dry Cleaning Machine Operator Name Role Phone Makayla Lees MD Primary Care Provider [phone] Encounter Details Date Type Department Care Team (Late st Contact Info) Description 10/30/2022 Lab Requisition [facility] Pathology & Laboratory Medicine - [facility] [address] [place], [place] [id number] Outr Resulting Lab, Provider Social History Tobacco Use Types Packs/Day Years Used Date Smoking Tobacco: Never Assessed Interpersonal Safety Answer Date Record ed Physically Hurt Never 07/02/2020 Verbally Threaten Not on file 07/02/2020 Comments Unknown Sex and Gender Information Value Date Recorded Sex Assigned at Not on file Legal Sex Female 18:38 EST Gender Identity Not on file Sexual Orientation Not on file documented as of this encounter Plan of Treatment Not on file documented as of this encounter Procedures Procedure Name Priority Date/Time Associated Diagnosis Comments HIV 1/2 ANTIGEN AND ANTIBODY, 4TH GENERATION Routine 10/30/2022 8:45 EST documented in this encounter Results * HIV 1/2 ANTIGEN AND ANTIBODY, 4TH GENERATION (10/30/2022 8:45 EST) HIV 1 and 2 Antibody/p24 Antigen, 4th Generation Negative Negative 10/31/2022 10:34 EST [facility] Comment:If acute HIV-1 infec tion is suspected in a high risk patient, submit plasma specimen for HIV-1 RNA quantitation test. Blood VENOUS BLOOD / Unknown 10/30/2022 8:45 EST 10/30/2022 21:31 EST Narrative [facility] - 10/31/2022 10:34 EST Fourth Generation assay performed on the Siemens AirCellaur XPT. us Provider Outr Resulting Lab IMMUNOLOGY AND SEROL OGY ORDERABLES Final Result [facility] [address] [place] [address] documented in this encounter Visit Diagnoses Not on filedocumented in this encounter Care Teams Dry Cleaning Machine Operator Relationship Specialty Start Date End Date Makayla Lees MD [address] [place] [phone] PCP - General 07/21/19 documented as of this encounter
--- OUTSIDE RECORDS SUMMARY | 2024-10-29 18:00 | XMS_ITS | Referral Summary ---
Author Organization [facility] Address [address] [place] [address] Care Team Providers Care Owner Consulting Engineer Name Role Phone Makayla Lees MD Primary Care Provider [phone] Social History Tobacco Use Types Packs/Day Years Used Date Smoking Tobacco: Never Assessed Interpersonal Safety Answer Date Record ed Physically Hurt Never 07/02/2020 Verbally Threaten Not on file 07/02/2020 Comments Unknown Sex and Gender Information Value Date Recorded Sex Assigned at Not on file Legal Sex Female 18:38 EST Gender Identity Not on file Sexual Orientation Not on file Plan of Treatment Not on file Procedures Procedure Name Priority Date/Time Associated Diagnosis Comments HEPATITIS C AB W REFLEX TO HCV RNA BY PCR Routine 10/30/2022 8:45 EST from Last 3 Months or Most Recently Relevant to Health Maintenance Results * HEPATITIS C AB W REFLEX TO HCV RNA BY PCR (10/30/2022 8:45 EST) Hep C Antibody Negative Negative 10/31/2022 16:17 EST [facility] Blood VENOUS BLOOD / Unknown 10/30/2022 8:45 EST 10/30/2022 21:31 EST us Provider Outr Resulting Lab CHEMISTRY & BLOOD GA S ORDERABLES Final Result [facility] [address] [place] [address] from Last 3 Months or Most Recently Relevant to Health Maintenance Insurance [employer] Care Teams Owner Consulting Engineer Relationship Specialty Start Date End Date Makayla Lees MD [address] [place] [phone] PCP - General 07/21/19
--- OUTSIDE RECORDS SUMMARY | 2024-10-29 18:00 | XMS_ITS | Encounter Summary ---
Author Organization [facility] Address [address] [place] [address] Care Team Providers Care Pelt Dropper Name Role Phone Unavailable Primary Care Provider Unavailabl e Encounter Details Date Type Department Care Team (Late st Contact Info) Description 11/03/2013 Results Only [facility] Laboratory Services - [facility] [place] [place] [address] [place] [address] Violeta Ramirez, PRODUCTION SUPPORT ANALYST [address] [facility],[address] [phone] Social History Tobacco Use Types Packs/Day Years [...] Procedure Name Priority Date/Time Associated Diagnosis Comments PAP TEST- RESULT ONLY Routine 11/03/2013 0:00 EST documented in this encounter Results * PAP TEST- RESULT ONLY (11/03/2013 0:00 EST) Pathology Report: CYTOPATHOLOGY REPORT Reports generated via electronic interface contain original data; however they are lacking the format of the original report. Caution should be taken when reading/interpreti ng unformatted reports. Name: ? ELHAM ALBERTO ? Accession #: ? [id number] : ? 1980 (Age: 33) ??F ?Collect Date: ? 11/03/2013 Location: ? [facility] ? Receive Date: ? 11/05/2013 Provider: ?VIOLETA RAMIREZ PRODUCTION SUPPORT ANALYST Copy to: ? Specimen/Source: ?Pap Test, Cervix/Endocervix, ThinPrep Imaging System with manual evaluation Last Menstrual Period: ? 10/19/2013 ? SPECIMEN ADEQUACY ? Satisfactory for Evaluation - transformation zone component present GENERAL CATEGORIZATION ? Negative for Intraepithelial Lesion or Malignancy ? Document reviewed and electronically signed by: ? Abimael Parekh, CT(ASCP) ? Report Date: ??11/09/2013 08:52 End of Report [facility] 11/03/2013 11/05/2013 us Violeta Ramirez NP PATHOLOGY ORDERABLES Final R esult [facility] [address] [place] [address] documented in this encounter Visit Diagnoses Not on filedocumented in this encounter
--- OUTSIDE RECORDS SUMMARY | 2024-10-29 18:00 | XMS_ITS | Encounter Summary ---
Author Organization [facility] Address [address] [place] [address] Care Team Providers Care Cavalry Scout Name Role Phone Unavailable Primary Care Provider Unavailabl e Encounter Details Date Type Department Care Team (Late st Contact Info) Description 09/03/2006 Results Only [facility] [address] [place] [address] Adams Russo MD [address] [place], [place] [id number] Social History Tobacco Use Types Packs/Day Years [...] Procedure Name Priority Date/Time Associated Diagnosis Comments HPV DETECTION, HIGH RISK TYPES Routine 09/03/2006 13:30 EDT CYTOPATHOLOGY Routine 09/03/2006 0:00 EDT documented in this encounter Results * HUMAN PAPILLOMA VIRUS DNA TEST (09/03/2006 13:30 EDT) Specimen Description Cervix, ThinPrep vial [facility] Result Negative for HPV types 16, 18, 31, 33, 35, 39, 45, 51, 52, 56, 58, 59, and 68. [facility] Report Status Final [id number] [facility] 09/03/2006 13:3 0 EDT 09/11/2006 11:51 EDT us Adams Russo MD MICROBIOLOGY - GENERAL ORDERABLE S Final Result [facility] [address] [place] [address] * CYTOPATHOLOGY (09/03/2006 0:00 EDT) Pathology Report: CYTOPATHOLOGY REPORT Reports generated via electronic interface contain original data; however they are lacking the format of the original report. Caution should be taken when reading/interpreti ng unformatted reports. Name: ? ELHAM ALBERTO ? Accession #: ? [id number] : ? 1980 (Age: 26) ??F ?Collect Date: ? 09/03/2006 Location: ? [facility] ? Receive Date: ? 09/04/2006 Provider: ?ADAMS RUSSO MD Copy to: ? Specimen/Source: ?ThinPrep Pap Test, Cervix/Endocervix, processed on [employer] ThinPrep Imaging System, with manual evaluation Last Menstrual Period: ? 09/30/05 Menstrual/Pregnanc y Status: ? Post Other: ? HPVA - HPV testing requested if ASC-US on the current ThinPrep Pap test. ? SPECIMEN ADEQUACY ? Satisfactory for Evaluation - transformation zone component present GENERAL CATEGORIZATION ? Epithelial Cell Abnormality INTERPRETATION ? Squamous Cell Abnormality - Atypical squamous cells, undetermined significance. EDUCATIONAL NOTES/RECOMMENDATI ONS ? [facility] recommends following the 2001 Consensus Guidelines for the Management of Women with Cervical Cytological Abnormalities (CALI,2002;287:212 0-9). Management algorithms have been distributed by [facility] and are available online at www.ASCCP.org. ? Document reviewed and electronically signed by: ? Camille Vigil MD ? Report Date: ??09/10/2006 14:38 End of Report [facility] 09/03/2006 09/04/2006 us Adams Russo MD PATHOLOGY ORDERABLES Final Resul t [facility] [address] [place] [address] documented in this encounter Visit Diagnoses Not on filedocumented in this encounter
--- OUTSIDE RECORDS SUMMARY | 2024-10-29 18:00 | XMS_ITS | Encounter Summary ---
Author Organization [facility] Address [address] [place] [address] Care Team Providers Care Bed And Breakfast Cook Name Role Phone Unavailable Primary Care Provider Unavailabl e Encounter Details Date Type Department Care Team (Late st Contact Info) Description 04/21/2008 Results Only [facility] [address] [place] [address] Jean Ashley MD [id number] [phone] Social History Tobacco Use Types Packs/Day Years [...] Priority Date/Time Associated Diagnosis Comments CYTOPATHOLOGY Routine 04/21/2008 0:00 EDT documented in this encounter Results * CYTOPATHOLOGY (04/21/2008 0:00 EDT) Pathology Report: CYTOPATHOLOGY REPORT Reports generated via electronic interface contain original data; however they are lacking the format of the original report. Caution should be taken when reading/interpreti ng unformatted reports. Name: ? ELHAM ALBERTO ? Accession #: ? [id number] : ? 1980 (Age: 28) ??F ?Collect Date: ? 04/21/2008 Location: ? [facility] ? Receive Date: ? 04/22/2008 Provider: ?JEAN ASHLEY MD Copy to: ? Specimen/Source: ?ThinPrep Pap Test, Cervix/Endocervix, processed on Coolest Cooler ThinPrep Imaging System, with manual evaluation Last Menstrual Period: ? 06/04/07 Menstrual/Pregnanc y Status: ? Post ? SPECIMEN ADEQUACY ? Satisfactory for Evaluation - transformation zone component present GENERAL CATEGORIZATION ? Negative for Intraepithelial Lesion or Malignancy ? Document reviewed and electronically signed by: ? NILE Moore(ASCP) ? Report Date: ??04/28/2008 11:32 End of Report [facility] 04/21/2008 04/22/2008 us Jean Ashley MD PATHOLOGY ORDERABLES Final Resu lt [facility] [address] [place] [address] documented in this encounter Visit Diagnoses Not on filedocumented in this encounter
--- OUTSIDE RECORDS SUMMARY | 2024-10-29 18:00 | XMS_ITS | Encounter Summary ---
Author Organization [facility] Address [address] [place] [address] Care Team Providers Care Volunteer Assistant Name Role Phone Makayla Lees MD Primary Care Provider [phone] Encounter Details Date Type Department Care Team (Latest Contact Info) Description 10/21/2019 Lab Requisition [facility] Pathology & Laboratory Medicine - [facility] [address] [place] [address] Makayla Lees MD [address] [place] [phone] Encounter for general adult medical examination without abnormal findings; Encounter for screening for malignant neoplasm of cervix; Encounter for screening for human papillomavirus (HPV) Social History Tobacco Use Types Packs/Day Years [...] Name Priority Date/Time Associated Diagnosis Comments PAP TEST Today 10/20/2019 15:15 EST Encounter for general adult medical examination without abnormal findings Encounter for screening for malignant neoplasm of cervix Encounter for screening for human papillomavirus (HPV) HPV DNA DETECTION WITH GENOTYPING, PCR Today 10/20/2019 15:15 EST Encounter for general adult medical examination without abnormal findings Encounter for screening for malignant neoplasm of cervix Encounter for screening for human papillomavirus (HPV) documented in this encounter Results * HUMAN PAPILLOMAVIRUS (HPV) DETECTION-HIGH RISK TYPES (10/20/2019 15:15 EST) HPV other High Risk types, PCR Negative Negative 10/29/2019 15:20 [facility] Comment:No E6 or E7 mRNA is detected from HPV types 16,18,31,33,35,39,45,51,52,56,58,59,66, and 68 by chairman of the board mediated amplification. Papanicolaou smear specimen (specimen) CERVIX UTERI STRUCTURE / Unknown 10/20/2019 15:15 EST 10/26/2019 16:06 EST us Makayla Lees MD MICROBIOLOGY - GENERAL ORDERABLE S Final Result [facility] [address] [place] [address] * PAP TEST (10/20/2019 15:15 EST) Specimens A. Cervix and/or Endocervix, , ThinPrep Imaging System with Manual Evaluation 10/29/2019 15:20 [facility] Specimen Adequacy Satisfactory for Evaluation - transformation zone component present Scant due to excessive inflammation Scant squamous epithelial component secondary to excessive mucous 10/29/2019 15:20 [facility] General Categorization Negative for intraepithelial lesion or malignancy 10/29/2019 15:20 [facility] Attestation . 10/29/2019 15:20 [facility] at 1520 Clinical History NONE 10/29/20 19 15:20 [facility] HPV The result for the Human Papillomavirus (HPV) Detection-High Risk Types is Negative. No E6 or E7 mRNA is detected from HPV types 16,18,31,33,35,39 ,45,51,52,56,58,5 9,66, and 68 by chairman of the board mediated amplification.Juli ting was performed on specimen [id number] and was resulted on 10/29/2019 1516 EST by JESUS, LAB INSTRUMENT RESULTS IN 10/29/2019 15:20 [facility] Scanned Images 10/29/2019 15:20 EST [facility] Papanicolaou smear specimen (specimen) CERVIX UTERI STRUCTURE / Unknown 10/20/2019 15:15 EST 10/21/2019 15:44 EST Makayla Lees MD PATHOLOGY ORDERABLES Final Resul t [facility] [address] [place] [address] documented in this encounter Visit Diagnoses Diagnosis Encounter for general adult medical examination without abnormal findings Unspecified general medical examination Encounter for screening for malignant neoplasm of cervix Screening for malignant neoplasm of the cervix Encounter for screening for human papillomavirus (HPV) Special screening examination for human papillomavirus (HPV) documented in this encounter Care Teams Volunteer Assistant Relationship Specialty Start Date End Date Makayla Lees MD [address] [place] [phone] PCP - General 07/21/19 documented as of this encounter
--- OUTSIDE RECORDS SUMMARY | 2024-10-29 18:00 | XMS_ITS | Encounter Summary ---
Author Organization [facility] Address [address] [place] [address] Care Team Providers Care Director Market Intelligence Name Role Phone Makayla Lees MD Primary Care Provider [phone] Encounter Details Date Type Department Care Team (Late st Contact Info) Description 10/30/2022 Lab Requisition [facility] Pathology & Laboratory Medicine - [facility] [address] [place], [place] [id number] Outr Resulting Lab, Provider Social History Tobacco [...] RNA BY PCR Routine 10/30/2022 8:45 EST documented in this encounter Results * HEPATITIS C AB W REFLEX TO HCV RNA BY PCR (10/30/2022 8:45 EST) Hep C Antibody Negative Negative 10/31/2022 16:17 EST [facility] Blood VENOUS BLOOD / Unknown 10/30/2022 8:45 EST 10/30/2022 21:31 EST us Provider Outr Resulting Lab CHEMISTRY & BLOOD GA S ORDERABLES Final Result [facility] [address] [place] [address] documented in this encounter Visit Diagnoses Not on filedocumented in this encounter Care Teams Director Market Intelligence Relationship Specialty Start Date End Date Makayla Lees MD [address] [place] [phone] PCP - General 07/21/19 documented as of this encounter
--- OUTSIDE RECORDS SUMMARY | 2024-10-29 18:00 | XMS_ITS | Encounter Summary ---
[place] [address] Care Team Providers Care Shank Breaker Name Role Phone Makayla Lees MD Primary Care Provider [phone] Reason for Visit * Consultation (Routine) - Closed Specialty Diagnoses / Procedures Referred By Sonia montoya Referred To Contact Dermatology Diagnoses Tinea unguium Makayla Lees MD [facility] [address] [address] [facility] Dermatology [address] [place] [address] Referral ID Status Reason Start Date Expiration Date Visits Re quested Visits Authorized [id number] Closed 10/06/2023 10/05/2024 1 1 Encounter Details Date Type Department Care Team (Late st Contact Info) Description 02/20/2024 9:20 AM EDT Office Visit Dermatology at [facility] [address] [place] [address] Mary Person MD [facility] [place] [address] Onycholysis; Koilonychia; Onychomycosis Social History Tobacco Use Types Packs/Day Years Used Date Smoking Tobacco: Never Assessed Sex and Gender Information Value Date Recorded Sex Assigned at Not on file Gender Identity Not on file Sexual Orientation Not on file documented as of this encounter Progress Notes * Mary Person MD - 02/20/2024 9:20 AM EDT Images from the original note were not included. DEPARTMENT OF DERMATOLOGY Medical D[facility]atology [facility] Provider: Mary Person MD Patient's preferred name Elham Preferred contact method for results [x]Cell Phone []myD-H []Letter Detailed phone message OK? Yes Are there any other people with whom we may discuss your care? Tj Cuadra Past Medical History Date, location, treatment Melanoma N Dysplastic nevi N SCC N BCC N AKs N Other relevant past medical history None Family History Details Melanoma N NMSC N Other relevant family history N Social History Occupation: Hobbies: Other: with 3 children PRE-PROCEDURE SCREENING Details Allergy to lidocaine, epinephrine, Dermabond, chlorhexidine, or adhesives N Bleeding disorder or blood thinners N Pacemaker, defibrillator, deep brain stimulator, cochlear implant N History of Present Illness: Elham Cuadra is a 43 y.o. Patient is new and self- referred to the clinic for fingernail fungus that started a year ago. PCP gave her oral pill suspected to be Terbinafine. She took this for ~ 3 months. Did not help. She has tried salt soaks and OTC lacquers. Used to have nails done years ago. Currently uses gel nail ecuadorean at home Medications: Reviewed in eD-H Allergies: Reviewed in eD-H Skin Examination: Focused skin examination of the finger nails/hands was normal with the exception of the findings below. Assessment/Plan #. Onycholysis/Koilonychia On all ten fingernail is onycholysis and koilonychia to at least 3/4 of the nail bed with some subungual debris. Capillary dilation at the nail fold Tinea vs. Psoriasis vs. Lichen planus Hx of gel nail ecuadorean and acrylics, (-) joint pain, (-) rash on body, no hx of psoriasis - Onycholysis is caused by separation of the nail plate from the underlying nail bed. - Patient endorses prior course of oral terbinafine for 3 months, 8 months ago - Recommend the following lab work: Iron - Recommend not using gel ecuadorean at this time - Recommend nail clipping to be sent to lab today from left hand - Discussed possible oral antifungal again pending results. Discussed risks/benefits of treatment. Figure 1 Photo(s) taken and charted with patient's verbal consent. Other: N/A RTC: 3 months for nail follow up []Note routed to medical secretary []Recall placed in scheduling system [x]Appointment scheduled at checkout Scribe attestation: Kya Villegas CMA has performed the documentation for this encounter inthe presence of and acting as a scribe for Mary Person MD. I performed the above scribed service and agree with the accuracy of the documentation in this encounter. Reviewed and signed by: Mary Person MD [facility] Patient seen and evaluated with staff poultry field service technician: Maeve Man MD [facility] * Maeve Man MD - 02/20/2024 9:20 AM EDT I directly supervised Mary Person MD in the care of this Dermatology patient in person. I saw and evaluated this patient with Mary Person MD. Mary Person MD presented the historyand physical exam details to me, then we saw the patient together, and I confirmed these findings. I agree with details as written. My physical examination confirms Mary Person MD's findings. The assessment and plan were formulated in discussion with me at the time of visit, and I agree withthem as documented. Maeve Man MD Staff Bone Density Technician Department of Dermatology [facility] * Mary Person MD - 02/20/2024 9:20 AM EDT Called patient and discussed results. Given absnece of dermatophytes and iron studies suggestive ofnormal levels, do not favor iron deficiency or fungal infection at present. Instead favor traumaticchanges 2/2 UV/acrylate curing from gel nails. Reiterated recommendation to follow up in a few months with me to ensure it is not worsening and is growing out. If worsening, can consider nail psoriasis vs other causes of onycholysis and onychodystrophy. Also reviewed vinegar soaks, drying hands well after wet work, and minimizing wet work contact time. All questions answered. Lorraine, could you please set her up with a f/u with me in 3 months? documented in this encounter Miscellaneous Notes * Addendum Note - Maeve Man MD - 02/20/2024 9:20 AM EDTAddended by: MAEVE MAN on: 02/20/2024 11:52 AM Modules accepted: Level of Service documented in this encounter Plan of Treatment Not on file documented as of this encounter Procedures Procedure Name Priority Date/Time Associated Diagnosis Comments FUNGUS CULTURE, SKIN/HAIR/NAILS Routine 02/20/2024 9:48 AM EDT Onychomycosis documented in this encounter Results * Iron and TIBC (02/20/2024 10:11 AM EDT) Iron 94 30 - 150 mcg/dL [facility] TIBC 316 250 - 450 mcg/dL [facility] Iron Saturation 30 20 - 50 % [facility] Blood 02/20/2024 10:1 1 AM EDT 02/20/2024 1:05 PM EDT Narrative Resulting Agency Comment Spec In Lab Maeve Man MD CHEMISTRY ORDERABLES [facility] [place] [address] * Fungus Culture, Skin/Hair/Nails Nail; Hand, Left (02/20/2024 9:48 AM EDT) Fungus Culture Skin/Hair/Kenzie ls No Dermatophytes isolated [facility] Nail STRUCTURE OF LEFT HAND / Unknown 02/20/2024 9:48 AM EDT 02/20/2024 2:11 PM EDT Narrative Resulting Agency Comment Spec In Lab Maeve Man MD MICROBIOLOGY - GENER AL ORDERABLES Performing Organization Address City/State/[facility] Co de Phone Number [facility] [place] [address] documented in this encounter Visit Diagnoses Diagnosis Onycholysis Other specified disease of nail Koilonychia Other specified disease of nail Onychomycosis Dermatophytosis of nail documented in this encounter Care Teams Shank Breaker Relationship Specialty Start Date End Date Makayla Lees MD [address] [place] [address] PCP - General Family Medicine 02/20/24 documented as of this encounter
--- OUTSIDE RECORDS SUMMARY | 2024-10-29 18:00 | XMS_ITS | Encounter Summary ---
Author Organization [facility] Address [facility] [place] [address] Care Team Providers Care Plumber Maintenance Name Role Phone Makayla Lees MD Primary Care Provider [phone] Encounter Details Date Type Department Care Team (Late st Contact Info) Description 02/20/2024 9:55 AM EDT Laboratory Appointment Lab at [facility] [address] [place] [phone] Onycholysis Social History Tobacco Use Types Packs/Day Years Used Date Smoking Tobacco: Never Assessed Sex and Gender Information Value Date Recorded Sex Assigned at Not on file Gender Identity Not on file Sexual Orientation Not on file documented as of this encounter Progress Notes * Mary Person MD - 02/20/2024 9:55 AM EDT Iron studies WNL. Will discuss further following nail clipping evaluation. documented in this encounter Plan of Treatment Not on file documented as of this encounter Procedures Procedure Name Priority Date/Time Associated Diagnosis Comments IRON AND TIBC Routine 02/20/2024 10:11 AM EDT Onycholysis documented in this encounter Results * Iron and TIBC (02/20/2024 10:11 AM EDT) Iron 94 30 - 150 mcg/dL [facility] TIBC 316 250 - 450 mcg/dL [facility] Iron Saturation 30 20 - 50 % [facility] Blood 02/20/2024 10:1 1 AM EDT 02/20/2024 1:05 PM EDT Narrative Resulting Agency Comment Spec In Lab Maeve Man MD CHEMISTRY ORDERABLES [facility] [place] [address] documented in this encounter Visit Diagnoses Diagnosis Onycholysis Other specified disease of nail documented in this encounter Care Teams Plumber Maintenance Relationship Specialty Start Date End Date Makayla Lese MD [facility] [address] [facility] [address] [place] [address] PCP - General Family Medicine 02/20/24 documented as of this encounter
--- OUTSIDE RECORDS SUMMARY | 2024-10-29 18:00 | XMS_ITS | Encounter Summary ---
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 Please allow time for your provider to receive these results and explore management options, if applicable. 11/11/2022 16:10 [facility] Final Diagnosis A. ESOPHAGUS, BIOPSY: - Mild chronic inflammation of squamocolumnar mucosa with reactive changes. - Negative for intestinal metaplasia and dysplasia. 11/11/2022 16:10 [facility] Attestation There was significant resident/fellow involvement in the diagnostic evaluation of this case. By the signature below, the attending physician certifies that they have personally conducted a gross and/or microscopic examination of the described specimens and rendered or confirmed the above diagnosis. 11/11/2022 16:10 [facility] at 1610 Clinical History Figueroa's esophagus with esophagitis 11/11/2022 16:10 [facility] Gross Description A. Received in formalin labelled with proper patient identification (initials A, M) and Figueroa's esophagus Bx are 3 key-white focally brown tissues (0.5 x 0.1 x 0.1 cm to 0.3 x 0.1 x 0.1 cm). Entirely submitted in A1. GERALD YU 11/11/2022 5:32 11/11/2022 16:10 [facility] Resident/Lj w: Henry Gilliam MD 11/11/2022 16:10 [facility] Performing Lab [facility] 11/11/2022 16:10 [facility] Scanned Images 11/11/2022 16:10 [facility] Tissue ENTIRE ESOPHAGUS / Unknown 11/08/2022 8:10 EST 11/08/2022 18:13 EST us Win Still MD PATHOLOGY ORDERABLES Final Resu lt [facility] [address] [place] [address] documented in this encounter Visit Diagnoses Diagnosis Figueroa's esophagus without dysplasia Figueroa's esophagus Esophagitis, unspecified without bleeding documented in this encounter Care Teams Field Mechanic/Site Lead Relationship Specialty Start Date End Date Makayla Lees MD [address] [place] [phone] PCP - General 07/21/19 documented as of this encounter
--- OUTSIDE RECORDS SUMMARY | 2024-10-29 18:00 | XMS_ITS | Encounter Summary ---
Author Organization [facility] Address [address] [place] [address] Care Team Providers Care Senior Internet Sales Consultant Name Role Phone Unknown, Provider Primary Care Provider Unava ilable Encounter Details Date Type Department Care Team (Late st Contact Info) Description 07/19/2019 Results Only [facility] [phone] Violeta Ramirez, AUTOMATION ENGINEERING TECHNICIAN [address] [facility],[address] [phone] Social History Tobacco Use Types [...] Priority Date/Time Associated Diagnosis Comments SURGICAL PATHOLOGY Routine 07/19/2019 8:26 EDT documented in this encounter Results * SURGICAL PATHOLOGY (07/19/2019 8:26 EDT) Pathology Report: SURGICAL PATHOLOGY REPORT Reports generated via electronic interface contain original data; however they are lacking the format of the original report. Caution should be taken when reading/interpretin g unformatted reports. Name: ? ELHAM ALBERTO ? Accession #: ? [id number] ? : ? 1980 (Age: 39) ??F ? Collect Date: ? 07/19/2019 ? Location: ? [facility] ? Receive Date: ? 07/19/2019 ? Provider: SIDDHARTHA DING MD Copy to: CAESAR LOWE MD ? Final Pathologic Diagnosis: A. SMALL BOWEL, BIOPSY: - Small bowel mucosa with no specific pathologic features. B. STOMACH, RANDOM, BIOPSY: - Gastric mucosa with reactive (chemical) gastropathy. C. STOMACH, POLYP, BIOPSY: - Fundic gland polyp. D. GASTROESOPHAGEAL JUNCTION, BIOPSY: - Intestinal metaplasia in a background of reflux esophagitis. ?? - Negative for dysplasia. Document reviewed and electronically signed by: GERALD JUDGE MD Report ??Date: 07/22/2019 11:03 By the signature above, the attending physician certifies that he/she has personally conducted a gross and/or microscopic examination of the described specimens and rendered or confirmed the above diagnosis. Specimen(s) Received: A. ??Small bowel bx, R/O celiac B. ??Gastric biopsy x2 C. ??Gastric polyp D. ??GE junction x3 Clinical History: Abdominal pain, on PPI Gross Description: A. ?Received in formalin labelled with proper patient identification (initials A, M) and small bowel BX rule out celiac are two key-brown tissues (0.4 x 0.2 x 0.2 cm and 0.5 x 0.2 x 0.2 cm). Entirely submitted in A1. B. ?Received in formalin labelled with proper patient identification (initials A, M) and gastric biopsy are three key-white tissues (0.2 x 0.1 x 0.1 cm, 0.2 x 0.2 x 0.1 cm and 0.5 x 0.2 x 0.1 cm). Entirely submitted in B1. C. ?Received in formalin labelled with proper patient identification (initials A, M) and gastric polyp is a single key-brown tissue fragment (0.3 x 0.2 x 0.1 cm). Submitted intact in C1. D. ?Received in formalin labelled with proper patient identification (initials A, M) and GE junction BX are three key white tissues (0.1 x 0.1 x 0.1 cm, 0.2 x 0.1 x 0.1 cm and 0.3 x 0.1 x 0.1 cm). Entirely submitted in D1. Mihrab Ali 07/20/2019 8:59 AM End of Report [facility] 07/19/2019 8:26 EDT 07/19/2019 8:26 EDT us Siddhartha Ding MD PATHOLOGY ORDERABLES Fin al Result [facility] [address] [place] [address] documented in this encounter Visit Diagnoses Not on filedocumented in this encounter Care Teams Senior Internet Sales Consultant Relationship Specialty Start Date End Date Unknown, Provider, PCP - General 10/16/15 07/20/19 documented as of this encounter
--- OUTSIDE RECORDS SUMMARY | 2024-10-29 18:00 | XMS_ITS | Clinical Summary ---
Author Organization [facility] Address [address] [place] [address] Care Team Providers Care Aviation Safety Technician Name Role Phone Makayla Lees MD Primary Care Provider [phone] Social History Tobacco Use Types Packs/Day Years [...] Health Maintenance Due Date Last Done Comments Hepatitis B Vaccine (1 of - 19+ 3-dose series) 04/11 COVID-19 Vaccine ( season) 2024 Hepatitis C Screen Completed 10/30/2022 Procedures Procedure Name Priority Date/Time Associated Diagnosis Comments HEPATITIS C AB W REFLEX TO HCV RNA BY PCR Routine 10/30/2022 8:45 EST from Last 3 Months or Most Recently Relevant to Health Maintenance Results * HEPATITIS C AB W REFLEX TO HCV RNA BY PCR (10/30/2022 8:45 EST) Hep C Antibody Negative Negative 10/31/2022 16:17 EST [facility] Blood VENOUS BLOOD / Unknown 10/30/2022 8:45 EST 10/30/2022 21:31 EST us Provider Outr Resulting Lab CHEMISTRY & BLOOD GA S ORDERABLES Final Result [facility] [address] [place] [address] from Last 3 Months or Most Recently Relevant to Health Maintenance Insurance [employer] Care Teams Aviation Safety Technician Relationship Specialty Start Date End Date Makayla Lees MD [address] [place] [phone] PCP - General 07/21/19
--- OUTSIDE RECORDS SUMMARY | 2024-10-29 18:00 | XMS_ITS | Encounter Summary ---
Author Organization [facility] Address [address] [place] [address] Care Team Providers Care Bicycle Repair Technician Name Role Phone Unknown, Provider MD Primary Care Provider Unava ilable Encounter Details Date Type Department Care Team (Latest Contact Info) Description 07/19/2019 19:01 EDT - 07/19/2019 23:59 EDT Hospital Encounter [address] [address] Unknown, Provider, Discharge Disposition: Home or Self Care Social History Tobacco Use Types Packs/Day Years Used Date Smoking Tobacco: Never Assessed Comments Unknown Sex and Gender Information Value Date Recorded Sex Assigned at Not on file Legal Sex Female 18:38 EST Gender Identity Not on file Sexual Orientation Not on file documented as of this encounter Discharge Disposition Disposition Code Departure Means Destination Home or Self Residential documented in this encounter Plan of Treatment Not on file documented as of this encounter Visit Diagnoses Not on filedocumented in this encounter Care Teams Bicycle Repair Technician Relationship Specialty Start Date End Date Unknown, Provider, PCP - General 10/16/15 07/20/19 documented as of this encounter
--- OUTSIDE RECORDS SUMMARY | 2024-10-29 18:00 | XMS_ITS | Encounter Summary ---
[place] [address] Care Team Providers Care Crew Attendant Name Role Phone Makayla Lees MD Primary Care Provider [phone] Encounter Details Date Type Department Care Team (Latest Contact Info) Description 02/20/2024 Travel Social History Tobacco Use Types Packs/Day Years Used Date Smoking Tobacco: Never Assessed Sex and Gender Information Value Date Recorded Sex Assigned at Not on file Gender Identity Not on file Sexual Orientation Not on file documented as of this encounter Plan of Treatment Not on file documented as of this encounter Visit Diagnoses Not on filedocumented in this encounter Care Teams Crew Attendant Relationship Specialty Start Date End Date Makayla Lees MD [address] [place] [address] PCP - General Family Medicine 02/20/24 documented as of this encounter
--- OUTSIDE RECORDS SUMMARY | 2024-10-29 18:00 | XMS_ITS | Encounter Summary ---
Author Organization [facility] Address [address] [place] [address] Care Team Providers Care Collections And Archives Director Name Role Phone Unavailable Primary Care Provider Unavailabl e Encounter Details Date Type Department Care Team (Late st Contact Info) Description 05/15/2009 Orders Only [facility] - [facility] [place] [place] [address] [place] [address] Rin Barry, SPEECH LANGUAGE PATHOLOGIST Social History Tobacco Use Types Packs/Day Years [...] Priority Date/Time Associated Diagnosis Comments CYTOPATHOLOGY Routine 05/15/2009 0:00 EDT documented in this encounter Results * CYTOPATHOLOGY (05/15/2009 0:00 EDT) Pathology Report: CYTOPATHOLOGY REPORT ? Reports generated via electronic interface contain original data; ? however they are lacking the format of the original report. ? Caution should be taken when reading/interpreti ng unformatted reports. ? Name: ? AMADON, ELHAM ? Accession #: ? [id number] ? : ? 1980 (Age: 29) ??F ?Collect Date: ? 05/15/2009 ? Location: ? [facility] ? Receive Date: ? 05/16/2009 ? Provider: ?RIN M QUYEN SPEECH LANGUAGE PATHOLOGIST ? Copy to: ? Specimen/Source: ?Pap Test, Cervix/Endocervix, ThinPrep Imaging System ? with manual evaluation ? Last Menstrual Period: ? 6/8/09 ? Previous Gynecologic Pathology: ? ASC-US: 10/06 ? Other: ? Additional clinical information: HPV neg, 5/22/08 neg. pap ? HPVA - HPV testing requested if ASC-US on the current ThinPrep Pap test. ? SPECIMEN ADEQUACY ? Satisfactory for Evaluation ? - transformation zone component present ? - scant squamous epithelial component ? GENERAL CATEGORIZATION ? Negative for Intraepithelial Lesion or Malignancy ? Document reviewed and electronically signed by: ? Madhu Stumler, CT(ASCP) ? Report Date: ??05/19/2009 10:51 ? End of Report ? [facility] 05/15/2009 05/16/2009 us Rin Barry SPEECH LANGUAGE PATHOLOGIST PATHOLOGY ORDERABLES Final Re sult [facility] [address] [place] [address] documented in this encounter Visit Diagnoses Not on filedocumented in this encounter
[2024-11-01 10:00] LABS: Lyme Ab w Rflx to Lyme Confirm Negative (Negative)
[2024-11-02 14:09] LABS: Anaplasma phagocytophilum Negative (Negative); B. miyamotoi PCR Negative (Negative); Babesia divergens/MO-1 Negative (Negative); Babesia duncani Negative (Negative); Babesia microti Negative (Negative); Ehrlichia chaffeensis Negative (Negative); Ehrlichia ewingii/canis Negative (Negative); Ehrlichia muris eauclairensis Negative (Negative)
== END 2024-10-29 18:00 | disposition home or self-care (01) ==
LOC: ER 17:59
PROVIDERS: Emergency Provider Emergency Medicine; PCP Family Medicine
DX: R51.9 Headache, unspecified (principal); K20.80 Other esophagitis without bleeding; K22.70 Barrett's esophagus without dysplasia
CPT/HCPCS: 87798; 96374; 96375; 99284; 70450; 86618; J1200; J1885; J2765

== ENCOUNTER 2024-12-05 13:15 | Outpatient (REF) | payer OTHER, SELFPAY ==
[2025-01-05 13:45] LABS: Fungus Smear No Fungi Seen
== END 2024-12-05 13:16 | disposition home or self-care (01) ==
LOC: NCHCN 13:15
PROVIDERS: PCP Family Medicine; Visit Provider Family Medicine
DX: B35.1 Tinea unguium (principal)
CPT/HCPCS: 87101; 87206

== ENCOUNTER 2025-01-10 11:48 | Outpatient (REF) | payer OTHER, SELFPAY ==
[2025-01-10 16:12] LABS: ALT 21 U/L (14-59); AST 10 U/L (15-37); Alkaline Phosphatase 70 U/L (46-116); Bilirubin, Direct 0.1 mg/dL (0.0-0.2); Bilirubin, Total 0.39 mg/dL (0.2-1.0); Total Protein 7.2 g/dL (6.4-8.2)
== END 2025-01-10 11:49 | disposition home or self-care (01) ==
LOC: NCHCN 11:48
PROVIDERS: PCP Family Medicine; Visit Provider Family Medicine
DX: Z51.81 Encounter for therapeutic drug level monitoring (principal)
CPT/HCPCS: 80076

== ENCOUNTER 2025-03-17 10:20 | Outpatient (CLI) | payer OTHER, SELFPAY | END 2025-03-17 10:21 | disposition home or self-care (01) | LOC: LBO 07-28 10:21 | PROVIDERS: PCP Family Medicine; Visit Provider Nurse Practitioner Family | DX: E83.52 Hypercalcemia (principal) | CPT/HCPCS: 36415; 82330 ==

== ENCOUNTER 2025-03-17 10:35 | Outpatient (CLI) | payer OTHER, SELFPAY ==
[2025-03-17 12:43] LABS: Abs Immature Grans 0.03 10^3/uL (0.0-0.06); Absolute Basophil Count 0.06 10^3/uL (0.0-0.2); Absolute Eosinophil Count 0.02 10^3/uL (0.0-0.7); Absolute Lymphocyte Count 1.66 10^3/uL (1.2-3.4); Absolute Monocyte Count 0.32 10^3/uL (0.1-0.8); Absolute Neutrophil Count 6.17 10^3/uL (1.2-6.7); Basophils % 0.7 %; Eosinophils % 0.2 %; HCT 46.8 % (36.0-46.0); HGB 15.8 g/dL (11.2-15.7); Immature Grans % 0.4 %; Lymphocytes % 20.1 %; MCH 29.5 pg (27.0-33.0); MCHC 33.8 % (32.0-36.0); MCV 88 fL (80-95); MPV 9.9 fL (8.0-11.0); Monocytes % 3.9 %; Neutrophils % 74.7 %; Platelet Count 294 10^3/uL (130-400); RBC 5.35 10^6/uL (3.93-5.22); RDW 13.1 % (11.7-14.6); RDW-SD 42.3 fL; WBC 8.26 10^3/uL (4.4-10.8)
[2025-03-17 13:27] LABS: ALT 25 U/L (14-59); AST 14 U/L (15-37); Albumin 4.3 g/dL (3.4-5.0); Alkaline Phosphatase 89 U/L (46-116); Anion Gap 8.1 mmol/L (3-11); BUN 14 mg/dL (7-18); Bilirubin, Total 0.2 mg/dL (0.2-1.0); CO2 27.9 mmol/L (21.0-32.0); CREATININE 1.2 mg/dL (0.55-1.02); Chloride 105 mmol/L (98-107); Estimated GFR 57.96 (mL/min/1.73m2); Glucose 101 mg/dL (74-106); Potassium 4.4 mmol/L (3.5-5.1); Sodium 141 mmol/L (136-145); Total Protein 8.3 g/dL (6.4-8.2)
[2025-03-17 13:32] LABS: Calcium 11.6 mg/dL (8.5-10.1)
== END 2025-03-17 10:36 | disposition home or self-care (01) ==
PROVIDERS: PCP Family Medicine; Referring Provider Nurse Practitioner Family; Visit Provider Nurse Practitioner Family
DX: R68.84 Jaw pain (principal)
CPT/HCPCS: 36415; 80053; 85025

== ENCOUNTER 2025-03-25 10:42 | Outpatient (REF) | payer OTHER, SELFPAY ==
[2025-03-25 21:41] LABS: ALT 23 U/L (14-59); AST 16 U/L (15-37); Albumin 3.7 g/dL (3.4-5.0); Alkaline Phosphatase 77 U/L (46-116); Anion Gap 7.5 mmol/L (3-11); BUN 11 mg/dL (7-18); Bilirubin, Total 0.3 mg/dL (0.2-1.0); CO2 26.5 mmol/L (21.0-32.0); Calcium 10.4 mg/dL (8.5-10.1); Chloride 107 mmol/L (98-107); Estimated GFR 72.13 (mL/min/1.73m2); Glucose 138 mg/dL (74-106); Potassium 4.7 mmol/L (3.5-5.1); Sodium 141 mmol/L (136-145); TSH 2.11 uIU/mL (0.36-3.74); Vitamin D 25 Total 34 ng/mL (30-100)
[2025-03-25 22:42] LABS: FREE T4 0.87 ng/dL (0.76-1.46)
[2025-03-28 11:33] LABS: Parathyroid Hormone,Intact 66 pg/mL (19-88)
== END 2025-03-25 10:43 | disposition home or self-care (01) ==
LOC: NCHCN 10:42
PROVIDERS: PCP Family Medicine; Visit Provider Family Medicine
DX: E83.52 Hypercalcemia (principal); R63.5 Abnormal weight gain
CPT/HCPCS: 80053; 82306; 83970; 84439; 84443